=== PATIENT | female | born 1950 | race Caucasian/White ===

== ENCOUNTER → 2016-12-14 | Outpatient (CLI) | payer OTHER, BC ==
[~2016-12-14] MED LIST: PARLODEL PO; PAXIL20 MG PO; VITAMIN D2000 UNIT PO; ZOCOR20 MG PO
== END | disposition home or self-care (01) ==
LOC: JMC 07:30
DX: R71.8 Other abnormality of red blood cells (principal)
CPT/HCPCS: 38221; G0463 25